=== PATIENT | male | born 1990 | race Two or more races ===

== ENCOUNTER 2020-11-04 00:23 | Emergency (ER) | payer OTHER ==
[~2020-11-04] VITALS: Ht 165.1 cm; Wt 99.8 kg
[2020-11-04 00:27] VITALS: BP 134/68
[2020-11-04] MEDS ORDERED: RALTEGRAVIR POTASSIUM 400 MG TABLET PO ONE (00:30)
[2020-11-04] MEDS ORDERED: EMTRICITABINE/TENOFOVIR 1 TAB PO ONE (00:30)
[2020-11-04] MEDS ORDERED: EMTR1TAB12 PO (00:33)
[2020-11-04] MEDS ORDERED: RALT400T PO (00:33)
--- NOTE | 2020-11-04 07:16 | NUR ---
Patient discharged to home in stable condition. Written and verbal after care instructions given. Patient verbalizes understanding of instruction.
[2020-11-04] MEDS ORDERED: TENOFOVIR DISOPROXIL FUMARATE 300 MG TABLET PO ONE (07:30)
[2020-11-04] MEDS ORDERED: EMTRICITABINE 200 MG CAPSULE PO ONE (07:30)
== END 2020-11-04 07:16 | disposition home or self-care (01) ==
LOC: ER 00:26
DX: S61.032A Puncture wound without foreign body of left thumb without damage to nail, initial encounter (principal); W46.0XXA Contact with hypodermic needle, initial encounter; Y93.89 Activity, other specified; Y92.89 Other specified places as the place of occurrence of the external cause; Y99.8 Other external cause status
CPT/HCPCS: 36415; 86706; 86803; 87340; 87806

== ENCOUNTER 2020-12-01 03:43 | Emergency (ER) | payer OTHER ==
[~2020-12-01] VITALS: Ht 165.1 cm; Wt 101.2 kg
[2020-12-01 03:43] VITALS: BP 134/69
[~2020-12-01 03:43] MED LIST: EMTR1TAB12 PO; RALT400T PO
== END 2020-12-01 04:03 | disposition home or self-care (01) ==
LOC: ER 03:43
DX: T14.90XA Injury, unspecified, initial encounter (principal); W46.0XXA Contact with hypodermic needle, initial encounter; Y93.89 Activity, other specified; Y92.89 Other specified places as the place of occurrence of the external cause; Y99.0 Civilian activity done for income or pay
CPT/HCPCS: 36415; 86706; 86803; 87806

== ENCOUNTER 2021-02-26 04:31 | Emergency (ER) | payer OTHER ==
[~2021-02-26] VITALS: Ht 165.1 cm; Wt 100.2 kg
[2021-02-26 04:37] VITALS: BP 131/75
--- NOTE | 2021-02-26 04:46 | NUR ---
Patient discharged to home in stable condition. Written and verbal after care instructions given. Patient verbalizes understanding of instruction.
== END 2021-02-26 04:47 | disposition home or self-care (01) ==
LOC: ER 04:31
DX: T14.8XXA Other injury of unspecified body region, initial encounter (principal); Z02.89 Encounter for other administrative examinations; Z60.2 Problems related to living alone; Z79.899 Other long term (current) drug therapy; W46.0XXA Contact with hypodermic needle, initial encounter; Y93.89 Activity, other specified; Y92.89 Other specified places as the place of occurrence of the external cause; Y99.8 Other external cause status
CPT/HCPCS: 36415; 86706; 86803; 87806

== ENCOUNTER 2021-08-22 01:07 | Emergency (ER) | payer OTHER ==
[~2021-08-22] VITALS: Ht 165.1 cm; Wt 99.8 kg
[2021-08-22 01:09] VITALS: BP 134/70
== END 2021-08-22 01:49 | disposition home or self-care (01) ==
LOC: ER 01:10
DX: Z00.00 Encounter for general adult medical examination without abnormal findings (principal); Z60.2 Problems related to living alone
CPT/HCPCS: 36415; 86706; 86803; 87806

== ENCOUNTER 2021-11-03 19:33 | Emergency (ER) | payer OTHER ==
[~2021-11-03] VITALS: Ht 167.6 cm; Wt 102.1 kg
[2021-11-03 19:37] VITALS: BP 127/82
--- NOTE | 2021-11-03 19:37 | NUR ---
PT BIBSELF FOR S/P NEEDLE STICK FOLLOW UP.
--- NOTE | 2021-11-03 19:49 | NUR ---
LICENSED PRACTICAL NURSE CLINIC NURSE AT PT'S BEDSIDE
== END 2021-11-03 20:16 | disposition home or self-care (01) ==
LOC: ER 19:36
DX: Z01.812 Encounter for preprocedural laboratory examination (principal); Z60.2 Problems related to living alone
CPT/HCPCS: 36415; 86706; 86803; 87806